=== PATIENT | female | born 1970 | race Caucasian/White ===

== ENCOUNTER 2016-11-22 12:26 | Inpatient (IN) | payer MEDICAID, OTHER ==
--- NOTE | 2016-11-22 13:43 | ED ---
Psych HPI - General Chief Complaint: Psychiatric Symptoms Stated Complaint: Mental Health Time Seen by Provider: 11/22/16 13:14 Source: patient Mode of arrival: wheelchair - History of Present Illness Initial Comments: This 46-year-old white female presents complaining of depression. She states that she feels suicidal. She complains of anxiety as well. She denies any hallucinations or delusions. She does have a long-standing history of anxiety. She is taking medication for this in the past with limited relief. She states that it is been worse over the past year and half since her brother . She does utilize cocaine but not since this past week. She denies any other drugs or alcohol. - Related Data Home Medications Medication Instructions Recorded Confirmed Cetirizine HCl [Zyrtec] 10 mg PO DAILY 11/22/16 11/22/16 Fluticasone Nasal [place] [Flonase 1 spray EA NOSTRIL DAILY PRN 11/22/16 11/22/16 Nasal [place]] Hydrocodone/Acetaminophen [[place] 1 tab PO Q6H PRN 11/22/16 11/22/16 10-325 Tablet] Ibuprofen [Motrin] 800 mg PO Q8HR PRN 11/22/16 11/22/16 Multivitamins, Thera [Multivitamin 1 tab PO DAILY 11/22/16 11/22/16 (formulary)] Omeprazole [PriLOSEC] 20 mg PO DAILY 11/22/16 11/22/16 Venlafaxine HCl [Effexor XR] 37.5 mg PO DAILY 11/22/16 11/22/16 Allergies Allergy/AdvReac Type Severity Reaction Status Date / Time morphine Allergy Unknown Verified 11/22/16 13:43 Sulfa (Sulfonamide Allergy Unknown Verified 11/22/16 13:43 Antibiotics) Review of Systems ROS Statement: Those systems with pertinent positive or pertinent negative responses have been documented in the HPI. ROS Other: All systems not noted in ROS Statement are negative. Past Medical History Additional Past Medical History / Comment(s): back issues History of Any Multi-Drug Resistant Organisms: None Reported Past Surgical History: Cholecystectomy, Hysterectomy Additional Past Surgical History / Comment(s): nasal surgery Past Psychological History: Depression Smoking Status: Current every day smoker Past Alcohol Use History: None Reported Past Drug Use History: None Reported General Exam - General Exam Comments Initial Comments: GENERAL: The patient is well nourished and well hydrated. VITAL SIGNS: Heart rate, blood pressure, respiratory rate reviewed as recorded in nurse's notes. EYES: Pupils are round and reactive. Extraocular movements are intact. No conjunctival / lid redness or swelling. ENT: No external evidence of injury, swelling, or ecchymosis. Airway is patent. Throat is clear. NECK: Nontender. No swelling or evidence of injury. No subcutaneous emphysema. Trachea is midline. No thyroid mass. HEART: Regular rate and rhythm. Good peripheral pulses. LUNGS/CHEST: Breath sounds clear and equal bilaterally. No rales, rhonchi, or wheezes. No ecchymosis, subcutaneous emphysema, or tenderness. ABDOMEN: Abdomen soft without tenderness. No palpable masses or organomegaly. No peritoneal signs. No abdominal wall swelling or ecchymosis. EXTREMITIES: No extremity tenderness. Normal muscle tone and function. No thoracolumbar tenderness. NEUROLOGIC: Sensation is grossly intact. Cranial nerve exam reveals face is symmetrical, tongue is midline, speech is clear. SKIN: No abrasions or ecchymosis is noted. No induration or masses noted. PSYCHIATRIC: Alert and oriented. Flat affect and tearful at times. Limitations: no limitations Course Vital Signs 11/22/16 12:35 Temperature 98.2 F Pulse Rate 85 Respiratory 18 Rate Blood Pressure 135/90 O2 Sat by Pulse 96 Oximetry Medical Decision Making - Medical Decision Making The patient is seen and examined. It is felt as though she is cleared for further psychiatric evaluation. Case is discussed with the psychiatric nurse and they would like to admit her to the hospital for further treatment. - Lab Data Lab Results 11/22/16 Range/Units 13:36 Urine Opiates Screen Detected H (NotDetected) Ur Oxycodone Screen Not Detected (NotDetected) Urine Methadone Screen Not Detected (NotDetected) Ur Propoxyphene Screen Not Detected (NotDetected) Ur Barbiturates Screen Not Detected (NotDetected) U Tricyclic Antidepress Not Detected (NotDetected) Ur Phencyclidine Scrn Not Detected (NotDetected) Ur Amphetamines Screen Not Detected (NotDetected) U Methamphetamines Scrn Not Detected (NotDetected) U Benzodiazepines Scrn Detected H (NotDetected) Urine Cocaine Screen Detected H (NotDetected) U Marijuana (THC) Screen Not Detected (NotDetected) Disposition Clinical Impression: Depression, Anxiety, Suicidal ideation Disposition: ADMITTED IP TO THIS [facility] Condition: Fair Time of Disposition: 18:05 Decision Date: 11/22/16 Decision Time: 18:05
[2016-11-22] MEDS ORDERED: ALPRAZolam 0.5 MG TAB PO STA (16:18)
[2016-11-22] MEDS ORDERED: KETOROLAC 60 MG/2 ML VIAL IM STA (16:19)
[2016-11-22] MEDS ORDERED: ZIPRASIDONE 20 MG VIAL IM PRN (18:40)
[2016-11-22] MEDS ORDERED: LORazepam 1 MG TAB PO PRN (18:40)
[2016-11-22] MEDS ORDERED: MAGNESIUM HYDROXIDE 2,400 MG/10 ML CUP PO PRN (18:40)
[2016-11-22] MEDS ORDERED: MAG HYDROX/AL HYDROX/SIMETH 30 ML CUP PO PRN (18:40)
[2016-11-22] MEDS ORDERED: ACETAMINOPHEN TAB 325 MG TAB PO PRN (18:40)
[2016-11-22] MEDS ORDERED: FLUTICASONE 50MCG/SPRAY NASAL 16GM EA NOSTRIL PRN (19:03)
[2016-11-22 19:52] VITALS: BMI 36.0
[2016-11-23 01:36] LABS: Appearance,Urine Cloudy (Clear); Bilirubin,Urine Negative (Negative); Calcium Oxalate Crystals,Urine Few /hpf; Glucose,Urine (UA) Negative (Negative); Ketones,Urine Negative (Negative); Leukocyte Esterase,Urine Negative (Negative); Mucus,Urine Occasional /hpf; Nitrite,Urine Negative (Negative); PH, Urine 5.5 (5.0-8.0); Particle Count 5564; Protein,Urine Trace (Negative); Specific Gravity,Urine 1.024 (1.001-1.035); Squamous Epithelial Cell,Urine 1 /hpf (0-4); UA Billing (MACRO vs. MICRO) MICRO; WBC,Urine <1 /hpf (0-5)
[2016-11-23] MEDS: LORATADINE 10 MG TAB PO SCH (08:41)
[2016-11-23] MEDS: PANTOPRAZOLE 40 MG TABLET PO SCH (08:41)
[2016-11-23] MEDS: HYDROcodone/APAP 5-325MG 1 EACH TAB PO PRN ×2 (08:43→16:44)
[2016-11-23] MEDS: IBUPROFEN 800 MG TAB PO PRN (08:44)
[2016-11-23 10:02] LABS: Basophils # (A) 0.1 k/uL (0-0.2); Basophils % (A) 1 %; CH 28.1; CHCM 32.9; Eosinophils # (A) 0.4 k/uL (0-0.7); Eosinophils % (A) 6 %; HDW 2.57; HGB 14.4 gm/dL (11.4-16.0); Luc # (Auto) 0.11; Luc % (Auto) 2; Lymphocytes # (A) 2.2 k/uL (1.0-4.8); Lymphocytes % (A) 34 %; MCH 27.5 pg (25.0-35.0); MCV 86.1 fL (80.0-100.0); Monocytes # (A) 0.3 k/uL (0-1.0); Monocytes % (A) 4 %; Neutrophils # (A) 3.5 k/uL (1.3-7.7); Neutrophils % (A) 54 %; RBC 5.22 m/uL (3.80-5.40); RDW 13.7 % (11.5-15.5); WBC 6.6 k/uL (3.8-10.6)
[2016-11-23 10:21] LABS: ALT 31 U/L (9-52); AST 22 U/L (14-36); Alkaline Phosphatase 75 U/L (38-126); Anion Gap 10 mmol/L; Blood Urea Nitrogen 20 mg/dL (7-17); Calcium 9.7 mg/dL (8.4-10.2); Carbon Dioxide 29 mmol/L (22-30); Chloride 104 mmol/L (98-107); Glucose 138 mg/dL (74-99); Non-African American GFR(MDRD) >60 (>60 ml/min/1.73 sqM); Potassium 3.5 mmol/L (3.5-5.1); Sodium 143 mmol/L (137-145); Total Bilirubin 0.7 mg/dL (0.2-1.3); Total Protein 6.8 g/dL (6.3-8.2)
[2016-11-23] MEDS: MULTIVITAMINS, THERA 1 EACH TAB PO SCH (13:08)
--- NOTE | 2016-11-23 15:14 | P.HP ---
Psychiatric H&P - . H&P Date: 11/23/16 History & Physical: Allergies Allergy/AdvReac Type Severity Reaction Status Date / Time morphine Allergy Unknown Verified 11/22/16 19:45 Sulfa (Sulfonamide Allergy Unknown Verified 11/22/16 19:45 Antibiotics) Vital Signs Temp 98.4 F 11/23/16 06:36 Pulse 62 11/23/16 06:36 Resp 16 11/23/16 06:36 BP 103/55 11/23/16 06:36 Pulse Ox 99 11/22/16 20:21 Intake & Output 11/22/16 11/23/16 11/23/16 18:59 06:59 18:59 Weight 95.254 kg 95.27 kg Laboratory Last Values WBC 6.6 k/uL (3.8-10.6) 11/23/16 09:34 RBC 5.22 m/uL (3.80-5.40) 11/23/16 09:34 Hgb 14.4 gm/dL (11.4-16.0) 11/23/16 09:34 Hct 45.0 % (34.0-46.0) 11/23/16 09:34 MCV 86.1 fL (80.0-100.0) 11/23/16 09:34 MCH 27.5 pg (25.0-35.0) 11/23/16 09:34 MCHC 32.0 g/dL (31.0-37.0) 11/23/16 09:34 RDW 13.7 % (11.5-15.5) 11/23/16 09:34 Plt Count 265 k/uL (150-450) 11/23/16 09:34 Neutrophils % 54 % 11/23/16 09:34 Lymphocytes % 34 % 11/23/16 09:34 Monocytes % 4 % 11/23/16 09:34 Eosinophils % 6 % 11/23/16 09:34 Basophils % 1 % 11/23/16 09:34 Neutrophils # 3.5 k/uL (1.3-7.7) 11/23/16 09:34 Lymphocytes # 2.2 k/uL (1.0-4.8) 11/23/16 09:34 Monocytes # 0.3 k/uL (0-1.0) 11/23/16 09:34 Eosinophils # 0.4 k/uL (0-0.7) 11/23/16 09:34 Basophils # 0.1 k/uL (0-0.2) 11/23/16 09:34 Sodium 143 mmol/L (137-145) 11/23/16 09:34 Potassium 3.5 mmol/L (3.5-5.1) 11/23/16 09:34 Chloride 104 mmol/L (98-107) 11/23/16 09:34 Carbon Dioxide 29 mmol/L (22-30) 11/23/16 09:34 Anion Gap 10 mmol/L 11/23/16 09:34 BUN 20 mg/dL (7-17) H 11/23/16 09:34 Creatinine 0.78 mg/dL (0.52-1.04) 11/23/16 09:34 Est GFR (MDRD) Af Amer >60 (>60 ml/min/1.73 sqM) 11/23/16 09:34 Est GFR (MDRD) Non-Af >60 (>60 ml/min/1.73 sqM) 11/23/16 09:34 Glucose 138 mg/dL (74-99) H 11/23/16 09:34 Calcium 9.7 mg/dL (8.4-10.2) 11/23/16 09:34 Total Bilirubin 0.7 mg/dL (0.2-1.3) 11/23/16 09:34 AST 22 U/L (14-36) 11/23/16 09:34 ALT 31 U/L (9-52) 11/23/16 09:34 Alkaline Phosphatase 75 U/L (38-126) 11/23/16 09:34 Total Protein 6.8 g/dL (6.3-8.2) 11/23/16 09:34 Albumin 4.0 g/dL (3.5-5.0) 11/23/16 09:34 TSH 2.020 mIU/L (0.465-4.680) 11/23/16 09:34 Urine Color Yellow 11/22/16 13:36 Urine Appearance Cloudy (Clear) H 11/22/16 13:36 Urine pH 5.5 (5.0-8.0) 11/22/16 13:36 Ur Specific [place] 1.024 (1.001-1.035) 11/22/16 13:36 Urine Protein Trace (Negative) H 11/22/16 13:36 Urine Glucose (UA) Negative (Negative) 11/22/16 13:36 Urine Ketones Negative (Negative) 11/22/16 13:36 Urine Blood Negative (Negative) 11/22/16 13:36 Urine Nitrite Negative (Negative) 11/22/16 13:36 Urine Bilirubin Negative (Negative) 11/22/16 13:36 Urine Urobilinogen 2.0 mg/dL (<2.0) 11/22/16 13:36 Ur Leukocyte Esterase Negative (Negative) 11/22/16 13:36 Urine WBC <1 /hpf (0-5) 11/22/16 13:36 Ur Squamous Epith Cells 1 /hpf (0-4) 11/22/16 13:36 Calcium Oxalate Crystal Few /hpf (None) H 11/22/16 13:36 Urine Mucus Occasional /hpf (None) H 11/22/16 13:36 Urine HCG, Qual Not Detected (Not Detectd) 11/22/16 13:36 Urine Opiates Screen Detected (NotDetected) H 11/22/16 13:36 Ur Oxycodone Screen Not Detected (NotDetected) 11/22/16 13:36 Urine Methadone Screen Not Detected (NotDetected) 11/22/16 13:36 Ur Propoxyphene Screen Not Detected (NotDetected) 11/22/16 13:36 Ur Barbiturates Screen Not Detected (NotDetected) 11/22/16 13:36 U Tricyclic Antidepress Not Detected (NotDetected) 11/22/16 13:36 Ur Phencyclidine Scrn Not Detected (NotDetected) 11/22/16 13:36 Ur Amphetamines Screen Not Detected (NotDetected) 11/22/16 13:36 U Methamphetamines Scrn Not Detected (NotDetected) 11/22/16 13:36 U Benzodiazepines Scrn Detected (NotDetected) H 11/22/16 13:36 Urine Cocaine Screen Detected (NotDetected) H 11/22/16 13:36 U Marijuana (THC) Screen Not Detected (NotDetected) 11/22/16 13:36 11/23/16 15:04 IDENTIFYING DATA: 46-year-old single female patient HPI: Patient states she was admitted because she had had enough. She states she came back to [place] and didn't want to be back here. Says she doesn't have a problem with addiction she is in [place]. She says she used a few days before she came in the hospital. She goes on to state that she came here instead of using again. She'll she has been depressed a lot and grieving the loss of her brother who she states shot himself a year and a half ago. She says it is not fair that he is not here and she needs to be here. She admits to thoughts of suicide lately, states that she has 2 nephews 18 and 20 that she is very close with and she thinks of them as a reason not to commit suicide. She admits to being a worrier and has big-time anxiety. She also admits to racing thoughts and states that she came here to get medication and to get back on track. PAST PSYCHIATRIC HISTORY: Has had 3 prior inpatient psychiatric admissions. States she's had 3 suicide attempts which were overdoses. She said her other times that she took pills without being admitted. She has never been on Abilify. She states that Seroquel made her too tired. She has been on Trintellix at some time in the past without significant benefit as well as Wellbutrin which did not help. She was on Effexor recently which made her feel sleepy. She does have a history of diagnosis of bipolar disorder with history of manic episodes. PMH: 2 herniated disks in her neck with pain. Plantar fasciitis, heel spurs and she states herniation in her feet. COPD. ALLERGIES: Morphine, sulfa MEDICATIONS: Tylenol when necessary, Maalox when necessary, Flonase, [place] when necessary, Motrin when necessary, Claritin, Ativan when necessary, milk of Magnesia when necessary, Theragran, Protonix, Geodon when necessary CHEMICAL DEPENDENCY HISTORY: Patient reports history of cocaine being her drug of choice. She did use daily at one point in time. She's been to rehab twice. She did not use when she was in [place] for 5 years. Says she uses alcohol here and there. Denies any marijuana or heroin use. FAMILY PSYCHIATRIC HISTORY: Brother who she relays shot himself 1-1/2 years ago. FAMILY CHEMICAL DEPENDENCY HISTORY: Not known at this time SOCIAL HISTORY: Not currently working, says she can't hold a job due to her mind. She did graduate high school. She has done medical billing in the past. Currently lives with her mom. She's never been and does not have any children. She has 2 nephews who live here in [place] and she moved back because of them. MENTAL STATUS EXAM: She is alert and cooperative with the interview. Her speech is fluent, not rapid or pressured. Thought processes organized. She denies any hallucinations. She describes her mood as "I'm.." She denies any thoughts of harm to self or others. No evidence of psychosis or agitation. Cognitively she appears very grossly intact. I do not note any significant disorientation or memory disturbance. Her insight is adequate, judgment shows evidence of recent impairment. STRENGTHS/WEAKNESSES: Strengths-some supports; weaknesses-coping skills INTELLECTUAL FUNCTIONING: adequate IMPRESSIONS: bipolar disorder, depressed; generalized anxiety disorder; stimulant use disorder PLAN: patient is admitted to the inpatient psychiatric unit [facility] on a voluntary basis. She'll be placed on SP 15 minute precautions. Baseline laboratory workup will be done the patient and medical consultation will be ordered. We will initiate Cymbalta 30 monitor daily to help with depression and anxiety symptoms. We will also initiate Abilify 5 mg daily to help with mood stabilization. We'll continue to cover this patient for Dr. Bertrand through the weekend. We will look into any family supports. Estimated length of stay is 3-5 days. Prognosis is guarded.
[2016-11-23] MEDS: DULoxetine HCL 30 MG CAPSULE.DR PO SCH (16:32)
[2016-11-23] MEDS: ARIPiprazole 5 MG TAB PO SCH (16:32)
--- NOTE | 2016-11-23 16:40 | P.CONS ---
History of Present Illness - Reason for Consult Physical examination - Chief Complaint Depression and anxiety - History of Present Illness This is a pleasant 46-year-old lady with no current PCP, admitted to the mental health unit secondary to depression and racing thoughts and suicidal ideation, she was admitted to [facility] rather than [facility] secondary to her avoiding multiple drug exposures among her friends, and she wanted to start a fair shot on life and wants to start over, she started using cocaine several years ago and was clean for 5 years and is started using again past 3 months, she is also on chronic pain [place] and was discharged from her previous PCP secondary to illicit drug use. She has multiple treatments for anxiety depression including brintellix Zoloft and Prozac, she also was on Seroquel, and blood within which did not help, Seroquel made her too drowsy, she also carries a diagnosis of bipolar disorder with history of manic episodes, Review of Systems Constitutional: Reports as per HPI, Reports chronic pain Ears, nose, mouth and throat: Reports as per HPI, Denies ant. neck pain, Denies bleeding gums, Denies dental pain, Denies dysphagia, Denies epistaxis, Denies headache, Denies hoarseness, Denies mouth pain, Denies nasal congestion, Denies nasal discharge, Denies neck fullness/pressure, Denies neck lump, Denies nose pain, Denies odynophagia, Denies post-nasal drip, Denies sinus pain, Denies sinus pressure, Denies swelling in mouth, Denies swelling in throat, Denies sore throat, Denies vertigo, Denies voice changes Cardiovascular: Reports as per HPI, Denies chest pain, Denies claudication, Denies decreased exercise tolerance, Denies dyspnea on exertion, Denies edema, Denies high blood pressure, Denies irregular heart beat, Denies leg edema, Denies lightheadedness, Denies orthopnea, Denies palpitations, Denies paroxysmal nocturnal dyspnea, Denies phlebitis, Denies rapid heart beat, Denies shortness of breath, Denies syncope Respiratory: Reports as per HPI, Denies congestion, Denies cough, Denies cough with sputum, Denies dyspnea, Denies excessive sputum, Denies hemoptysis, Denies home oxygen, Denies pain, Denies pain on inspiration, Denies pleurisy, Denies respiratory infections, Denies sleep apnea, Denies snoring, Denies wheezing Gastrointestinal: Reports as per HPI, Denies abdominal pain, Denies belching, Denies bloating, Denies BRBPR, Denies change in bowel habits, Denies coffee ground emesis, Denies constipation, Denies diarrhea, Denies dyspepsia, Denies early satiety, Denies excessive gas, Denies heartburn, Denies hematemesis, Denies hematochezia, Denies indigestion, Denies jaundice, Denies lactose intolerance, Denies loss of appetite, Denies melena, Denies nausea, Denies vomiting Genitourinary: Reports as per HPI Menstruation: Reports as per HPI Musculoskeletal: Reports as per HPI, Reports gait dysfunction, Reports limitation of motion, Denies arm numbness/tingling, Denies atrophy, Denies fractures, Denies frequent falls, Denies hot joints, Denies leg numbness/ tingling, Denies loss of height, Denies low back pain, Denies morning stiffness , Denies muscle cramps, Denies muscle weakness, Denies myalgias, Denies neck pain, Denies neck stiffness, Denies prior amputations, Denies redness of joints , Denies shooting arm pain, Denies shooting leg pain Integumentary: Reports as per HPI Neurological: Denies as per HPI, Denies aphasia, Denies ataxia, Denies balance difficulties, Denies burning pain, Denies change in mentation, Denies change in smell/taste, Denies change in speech, Denies confusion, Denies convulsions, Denies double vision, Denies gait dysfunction, Denies head injury, Denies headaches, Denies hearing difficulties, Denies lack of coordination, Denies loss of vision, Denies memory loss, Denies migraines, Denies motor disturbance, Denies numbness, Denies paralysis, Denies paresthesias, Denies seizures, Denies sensory deficit, Denies spasticity, Denies syncope, Denies tic, Denies tingling , Denies transient paralysis, Denies tremors, Denies vertigo, Denies weakness, Denies visual changes Psychiatric: Reports as per HPI, Reports anxiety, Reports irritability, Reports mood swings, Reports sleep disturbances, Reports suicidal ideation Endocrine: Reports as per HPI, Denies cold intolerance, Denies deepening of the voice, Denies excessive sweating, Denies excessive thirst, Denies fatigue, Denies flushing, Denies heat intolerance, Denies high blood sugars, Denies increase in ring/shoe/hat size, Denies low blood sugars, Denies nocturia, Denies palpitations, Denies polydipsia, Denies polyphagia, Denies polyuria, Denies proptosis, Denies recent glucocorticoid use, Denies thyroid mass, Denies weight change Hematologic/Lymphatic: Reports as per HPI, Denies easy bleeding, Denies easy bruising, Denies lymphadenopathy, Denies lymphedema, Denies thrombophilia Allergic/Immunologic: Reports as per HPI, Denies allergic rhinitis, Denies anaphylaxis, Denies angioedema, Denies gluten intolerance, Denies persistent infections, Denies seasonal allergies, Denies urticaria, Denies wheezing Past Medical History Past Medical History: COPD, Osteoarthritis (OA) (Lumbar disc disease, plantar fasciitis, herniated disc in the neck) Additional Past Medical History / Comment(s): back issues History of Any Multi-Drug Resistant Organisms: None Reported Past Surgical History: Cholecystectomy, Hysterectomy Additional Past Surgical History / Comment(s): nasal surgery Past Psychological History: Depression Smoking Status: Current every day smoker Past Alcohol Use History: None Reported Past Drug Use History: None Reported Medications and Allergies Home Medications Medication Instructions Recorded Confirmed Type Cetirizine HCl [Zyrtec] 10 mg PO DAILY 11/22/16 11/22/16 History Fluticasone Nasal [place] [Flonase 1 spray EA NOSTRIL DAILY PRN 11/22/16 11/22/16 History Nasal [place]] Hydrocodone/Acetaminophen [[place] 1 tab PO Q6H PRN 11/22/16 11/22/16 History 10-325 Tablet] Ibuprofen [Motrin] 800 mg PO Q8HR PRN 11/22/16 11/22/16 History Multivitamins, Thera [Multivitamin 1 tab PO DAILY 11/22/16 11/22/16 History (formulary)] Omeprazole [PriLOSEC] 20 mg PO DAILY 11/22/16 11/22/16 History Venlafaxine HCl [Effexor XR] 37.5 mg PO DAILY 11/22/16 11/22/16 History Allergies Allergy/AdvReac Type Severity Reaction Status Date / Time morphine Allergy Unknown Verified 06/09/17 19:45 Sulfa (Sulfonamide Allergy Unknown Verified 11/22/16 19:45 Antibiotics) Physical Exam Vitals: Vital Signs Temp Pulse Pulse Resp BP BP Pulse Ox 11/23/16 06:36 98.4 F 62 16 103/55 11/23/16 04:04 97.9 F 73 16 116/92 11/22/16 20:21 98.6 F 65 18 116/59 99 11/22/16 19:58 98.6 F 68 18 116/59 92 L Intake and Output 11/22/16 11/23/16 11/23/16 22:59 06:59 14:59 Other: Weight 95.27 kg - Constitutional General appearance: cooperative, no acute distress - EENT Eyes: anicteric sclerae, dentition normal ENT: NA/AT, normal oropharynx - Neck Neck: no lymphadenopathy, normal ROM, no other, no rigidity, no stridor, no thyromegaly - Respiratory Respiratory: bilateral: CTA, negative: dullness, rales, rhonchi, wheezing - Cardiovascular Rhythm: regular Heart sounds: normal: S1, S2 Abnormal Heart Sounds: no systolic murmur, no diastolic murmur, no rub, no S3 Gallop, no S4 Gallop, no click, no other - Gastrointestinal General gastrointestinal: normal bowel sounds, soft - Integumentary Integumentary: normal, normal turgor - Neurologic Neurologic: CNII-XII intact - Musculoskeletal Musculoskeletal: gait normal, strength equal bilaterally - Psychiatric Psychiatric: A&O x's 3, appropriate affect, intact judgment & insight Results CBC & Chem 7: 11/23/16 09:34 11/23/16 09:34 Labs: Abnormal Lab Results - Last 24 Hours (Table) 11/22/16 11/22/16 11/23/16 Range/Units 13:36 13:36 09:34 BUN 20 H (7-17) mg/dL Glucose 138 H (74-99) mg/dL Urine Appearance Cloudy H (Clear) Urine Protein Trace H (Negative) Calcium Oxalate Crystal Few H (None) /hpf Urine Mucus Occasional H (None) /hpf Urine Opiates Screen Detected H (NotDetected) U Benzodiazepines Scrn Detected H (NotDetected) Urine Cocaine Screen Detected H (NotDetected) Laboratory Results WBC 6.6 k/uL (3.8-10.6) 11/23/16 09:34 RBC 5.22 m/uL (3.80-5.40) 11/23/16 09:34 Hgb 14.4 gm/dL (11.4-16.0) 11/23/16 09:34 Hct 45.0 % (34.0-46.0) 11/23/16 09:34 MCV 86.1 fL (80.0-100.0) 11/23/16 09:34 MCH 27.5 pg (25.0-35.0) 11/23/16 09:34 MCHC 32.0 g/dL (31.0-37.0) 11/23/16 09:34 RDW 13.7 % (11.5-15.5) 11/23/16 09:34 Plt Count 265 k/uL (150-450) 11/23/16 09:34 Neutrophils % 54 % 11/23/16 09:34 Lymphocytes % 34 % 11/23/16 09:34 Monocytes % 4 % 11/23/16 09:34 Eosinophils % 6 % 11/23/16 09:34 Basophils % 1 % 11/23/16 09:34 Neutrophils # 3.5 k/uL (1.3-7.7) 11/23/16 09:34 Lymphocytes # 2.2 k/uL (1.0-4.8) 11/23/16 09:34 Monocytes # 0.3 k/uL (0-1.0) 11/23/16 09:34 Eosinophils # 0.4 k/uL (0-0.7) 11/23/16 09:34 Basophils # 0.1 k/uL (0-0.2) 11/23/16 09:34 Sodium 143 mmol/L (137-145) 11/23/16 09:34 Potassium 3.5 mmol/L (3.5-5.1) 11/23/16 09:34 Chloride 104 mmol/L (98-107) 11/23/16 09:34 Carbon Dioxide 29 mmol/L (22-30) 11/23/16 09:34 Anion Gap 10 mmol/L 11/23/16 09:34 BUN 20 mg/dL (7-17) H 11/23/16 09:34 Creatinine 0.78 mg/dL (0.52-1.04) 11/23/16 09:34 Est GFR (MDRD) Af Amer >60 (>60 ml/min/1.73 sqM) 11/23/16 09:34 Est GFR (MDRD) Non-Af >60 (>60 ml/min/1.73 sqM) 11/23/16 09:34 Glucose 138 mg/dL (74-99) H 11/23/16 09:34 Calcium 9.7 mg/dL (8.4-10.2) 11/23/16 09:34 Total Bilirubin 0.7 mg/dL (0.2-1.3) 11/23/16 09:34 AST 22 U/L (14-36) 11/23/16 09:34 ALT 31 U/L (9-52) 11/23/16 09:34 Alkaline Phosphatase 75 U/L (38-126) 11/23/16 09:34 Total Protein 6.8 g/dL (6.3-8.2) 11/23/16 09:34 Albumin 4.0 g/dL (3.5-5.0) 11/23/16 09:34 TSH 2.020 mIU/L (0.465-4.680) 11/23/16 09:34 Urine Color Yellow 11/22/16 13:36 Urine Appearance Cloudy (Clear) H 11/22/16 13:36 Urine pH 5.5 (5.0-8.0) 11/22/16 13:36 Ur Specific [place] 1.024 (1.001-1.035) 11/22/16 13:36 Urine Protein Trace (Negative) H 11/22/16 13:36 Urine Glucose (UA) Negative (Negative) 11/22/16 13:36 Urine Ketones Negative (Negative) 11/22/16 13:36 Urine Blood Negative (Negative) 11/22/16 13:36 Urine Nitrite Negative (Negative) 11/22/16 13:36 Urine Bilirubin Negative (Negative) 11/22/16 13:36 Urine Urobilinogen 2.0 mg/dL (<2.0) 11/22/16 13:36 Ur Leukocyte Esterase Negative (Negative) 11/22/16 13:36 Urine WBC <1 /hpf (0-5) 11/22/16 13:36 Ur Squamous Epith Cells 1 /hpf (0-4) 11/22/16 13:36 Calcium Oxalate Crystal Few /hpf (None) H 11/22/16 13:36 Urine Mucus Occasional /hpf (None) H 11/22/16 13:36 Urine HCG, Qual Not Detected (Not Detectd) 11/22/16 13:36 Urine Opiates Screen Detected (NotDetected) H 11/22/16 13:36 Ur Oxycodone Screen Not Detected (NotDetected) 11/22/16 13:36 Urine Methadone Screen Not Detected (NotDetected) 11/22/16 13:36 Ur Propoxyphene Screen Not Detected (NotDetected) 11/22/16 13:36 Ur Barbiturates Screen Not Detected (NotDetected) 11/22/16 13:36 U Tricyclic Antidepress Not Detected (NotDetected) 11/22/16 13:36 Ur Phencyclidine Scrn Not Detected (NotDetected) 11/22/16 13:36 Ur Amphetamines Screen Not Detected (NotDetected) 11/22/16 13:36 U Methamphetamines Scrn Not Detected (NotDetected) 11/22/16 13:36 U Benzodiazepines Scrn Detected (NotDetected) H 11/22/16 13:36 Urine Cocaine Screen Detected (NotDetected) H 11/22/16 13:36 U Marijuana (THC) Screen Not Detected (NotDetected) 11/22/16 13:36 Assessment and Plan Plan: 1. Bipolar disorder with depression, generalized anxiety disorder, patient currently is in the mental health inpatient unit on a voluntary basis, patient will be placed on suicide precautions and would be closely monitored, psychiatry would initiate Cymbalta and Abilify for mood stabilization, 2. Chronic pain patient was started on Cymbalta Katelyn this admission, she was counseled regarding the illicit cocaine use, local [id number] at every 8 hours when necessary was offered, patient has failed even Voltaren gel, and has refused neck spine surgery that was offered to her in the past 3. Cocaine use, patient was counseled regarding the severe consequences off illicit drug use EKG was performed in emergency room which failed to reveal any QT prolongation 4ALLERGIC rhinitis on Flonase 5 GERD on Protonix 40
[2016-11-24] MEDS: HYDROcodone/APAP 5-325MG 1 EACH TAB PO PRN ×3 (04:37→22:04)
[2016-11-24] MEDS: LORATADINE 10 MG TAB PO SCH (09:27)
[2016-11-24] MEDS: DULoxetine HCL 30 MG CAPSULE.DR PO SCH (09:27)
[2016-11-24] MEDS: ARIPiprazole 5 MG TAB PO SCH (09:27)
[2016-11-24] MEDS: PANTOPRAZOLE 40 MG TABLET PO SCH (09:27)
[2016-11-24] MEDS: IBUPROFEN 800 MG TAB PO PRN (09:28)
[2016-11-24] MEDS: MULTIVITAMINS, THERA 1 EACH TAB PO SCH (13:05)
--- NOTE | 2016-11-24 14:16 | P.PN ---
Progress Note - Text Interval history: Patient is seen in cross coverage today for Dr. Bertrand. She reports that she has been sleeping a lot, relays she was sleeping a lot prior to coming in the hospital it sounds. It is not clear whether either of the medications Cymbalta or Abilify is making her tired. She does state towards the end of the session she's feels like she is feeling a little bit better today. Mental status exam: She is alert and cooperative with the interview. Her speech is fluent, not rapid or pressured. Thought processes are organized. Her mood is described as a little bit better. She admits to some on and off thoughts of suicide, relays that she is able to be safe in the hospital. She denies any thoughts of harm to others. She does not show any active evidence of psychosis. She does not show any agitation. Plan: Patient will be maintained on current psychotropic medication regimen. We will monitor for any medication side effects. Dr. Bertrand to resume care this patient starting tomorrow.
[2016-11-25] MEDS: ARIPiprazole 5 MG TAB PO SCH (09:24)
[2016-11-25] MEDS: PANTOPRAZOLE 40 MG TABLET PO SCH (09:25)
[2016-11-25] MEDS: HYDROcodone/APAP 5-325MG 1 EACH TAB PO PRN ×2 (09:26→18:49)
[2016-11-25] MEDS: LORATADINE 10 MG TAB PO SCH (09:26)
[2016-11-25] MEDS: DULoxetine HCL 30 MG CAPSULE.DR PO SCH (09:26)
[2016-11-25] MEDS: MULTIVITAMINS, THERA 1 EACH TAB PO SCH (12:48)
--- NOTE | 2016-11-25 12:52 | P.PN ---
Progress Note - Text Interval history: Patient discussed at treatment team meeting, review of record , met with patient. Patient admitted over the weekend for suicidal ideation. Reports that she is feeling sleepy, knows that this is a side effect of medicine and that it should wear off soon. Patient reports that she is not interested in going to rehab, says that she was clean for 5 years when she was in [place], and for the last 2 months in [place]. States the only reason that she used here was because she was suicidal and then decided to come in and get treatment. States that she is angry with her brother for committing suicide. Says that she was the one that was always identified as the one with mental illness, everything was hard for her, it was easy for him then he went ahead and killed himself he was drinking. Patient says that she doesn't want to go to rehab because she'll just be around people who use. Says she thinks she like to stay here in [place] but she has no place to stay so she knows that she'll be going back to stay with her mother at least for a short time. She would like to have her mental health care up in this area rather than in [place]. Denies suicidal ideation Mental status exam: Patient alert and oriented 3, good eye contact, fair groomed in street clothing. Speech normal volume, rate and production. Coherent, logical and goal directed thought process. No RAMON, no FOI. [No TB/TW/ TI] Denied auditory and visual hallucinations. Denied paranoid ideation, delusions or IOR. Memory grossly intact Cognition average Mood neutral, affect instructed, congruent with mood. Denies suicidal ideation, denies homicidal ideation. Insight partial; Judgement [place] intact for treatment purposes ASSESSMENT: Methamphetamine use Cocaine use Opiate use Benzodiazepine abuse Suicidal ideation Mood disorder unspecified Plan: Continue psychiatric inpatient admission, for safety, clarification of diagnosis and treatment. Continue Abilify for mood and Cymbalta. Patient asking for Xanax explain benzodiazepine class is not a good choice for someone who has drug abuse will not prescribe. Social work to arrange family meeting, and outpatient treatment. Encourage milieu therapy.
[2016-11-25] MEDS ORDERED: hydrOXYzine PAMOATE 25 MG CAP PO PRN (12:53)
[2016-11-25] MEDS: IBUPROFEN 800 MG TAB PO PRN (22:42)
[2016-11-26 07:08] VITALS: BP 88/52; PULSE 60; RESP 12; TEMP 98
[2016-11-26] MEDS: PANTOPRAZOLE 40 MG TABLET PO SCH (07:31)
[2016-11-26] MEDS: HYDROcodone/APAP 5-325MG 1 EACH TAB PO PRN (07:32)
[2016-11-26] MEDS: ARIPiprazole 5 MG TAB PO SCH (08:38)
[2016-11-26] MEDS: LORATADINE 10 MG TAB PO SCH (08:38)
[2016-11-26] MEDS: DULoxetine HCL 30 MG CAPSULE.DR PO SCH (08:38)
[2016-11-26] MEDS: MULTIVITAMINS, THERA 1 EACH TAB PO SCH (12:06)
--- NOTE | 2016-11-26 12:17 | P.DS ---
Providers Date of admission: 11/22/16 18:15 Expected date of discharge: 11/26/16 Attending physician: Malathi Bertrand MD Consults: 11/22/16 18:40 Consult Physician Routine Consulting Provider: Hamida Arthur Consult Reason/Comments: H and P and medical management Do you want consulting provider notified?: Yes Primary care physician: Stated None Hospital Course: HOSPITAL ADMISSION: 46-year-old single female patient. Patient states she was admitted because she had had enough. She states she came back to [place] and didn't want to be back here. Says she doesn't have a problem with addiction she is in [place]. She says she used a few days before she came in the hospital. She goes on to state that she came here instead of using again. She'll she has been depressed a lot and grieving the loss of her brother who she states shot himself a year and a half ago. She says it is not fair that he is not here and she needs to be here. She admits to thoughts of suicide lately, states that she has 2 nephews 18 and 20 that she is very close with and she thinks of them as a reason not to commit suicide. She admits to being a worrier and has big-time anxiety. She also admits to racing thoughts and states that she came here to get medication and to get back on track. HOSPITAL COURSE: Patient was prescribed Abilify 5 mg UD, Cymbalta 30 mg every morning. Patient reported by the second day that she was no longer suicidal still depressed and anxious. Patient refused to attend groups stating "they always talk about suicide, and it reminds me of my brother" In the final day patient began to attend groups reporting that she was feeling good, today stating "I feel like I'm me again". Says that she is ready to get back home. Patient requests that I write a letter that she is disabled and cannot work. Explored that with her, that she had been working in [place] and that I could not make a statement as definitive is that after only treating her for 2 days. She accepted that ADMISSION DIAGNOSES: Bipolar disorder DISCHARGE DIAGNOSES: Mood disorder, unspecified PLAN: Discharge today. Discharge medications Abilify 5 mg daily Cymbalta 30 mg daily. Patient had family meeting. Outpatient follow-up appointments scheduled. Pertinent Studies: none Procedures: none Plan - Discharge Summary New Discharge Prescriptions: New ARIPiprazole [Abilify] 5 mg PO DAILY #14 tab DULoxetine HCL [Cymbalta] 30 mg PO DAILY #14 cap Continue Multivitamins, Thera [Multivitamin (formulary)] 1 tab PO DAILY Hydrocodone/Acetaminophen [[place] 10-325 Tablet] 1 tab PO Q6H PRN PRN Reason: Pain Cetirizine HCl [Zyrtec] 10 mg PO DAILY Omeprazole [PriLOSEC] 20 mg PO DAILY Ibuprofen [Motrin] 800 mg PO Q8HR PRN PRN Reason: Pain Fluticasone Nasal [place] [Flonase Nasal [place]] 1 spray EA NOSTRIL DAILY PRN PRN Reason: Allergy Symptoms Discontinued Venlafaxine HCl [Effexor XR] 37.5 mg PO DAILY Discharge Medication List Cetirizine HCl [Zyrtec] 10 mg PO DAILY 11/22/16 [History] Fluticasone Nasal [place] [Flonase Nasal [place]] 1 spray EA NOSTRIL DAILY PRN 11/22 [History] Hydrocodone/Acetaminophen [[place] 10-325 Tablet] 1 tab PO Q6H PRN 11/22/16 [ History] Ibuprofen [Motrin] 800 mg PO Q8HR PRN 11/22/16 [History] Multivitamins, Thera [Multivitamin (formulary)] 1 tab PO DAILY 11/22/16 [History ] Omeprazole [PriLOSEC] 20 mg PO DAILY 11/22/16 [History] ARIPiprazole [Abilify] 5 mg PO DAILY #14 tab 11/26/16 [Rx] DULoxetine HCL [Cymbalta] 30 mg PO DAILY #14 cap 11/26/16 [Rx] Discharge Disposition: HOME SELF-CARE
== END 2016-11-26 16:10 | disposition home or self-care (01) | DRG 885 ==
LOC: EC 12:26 → 3MHU 18:15
PROVIDERS: ADMIT Psychiatry & Neurology Addiction Medicine; ATTEND Psychiatry & Neurology Addiction Medicine
DX: F31.9 Bipolar disorder, unspecified (principal); R45.851 Suicidal ideations; J44.9 Chronic obstructive pulmonary disease, unspecified; F41.1 Generalized anxiety disorder; Z79.899 Other long term (current) drug therapy; F17.200 Nicotine dependence, unspecified, uncomplicated; F15.90 Other stimulant use, unspecified, uncomplicated; F14.90 Cocaine use, unspecified, uncomplicated; F13.10 Sedative, hypnotic or anxiolytic abuse, uncomplicated; K21.9 Gastro-esophageal reflux disease without esophagitis; J30.9 Allergic rhinitis, unspecified; Z71.51 Drug abuse counseling and surveillance of drug abuser; M51.36 Other intervertebral disc degeneration, lumbar region; M19.90 Unspecified osteoarthritis, unspecified site; Z88.5 Allergy status to narcotic agent; Z88.2 Allergy status to sulfonamides; Z63.4 Disappearance and death of family member; G89.29 Other chronic pain
CPT/HCPCS: 80053; 80306; 81001; 81025; 82075; 84443; 85025; 93005; 96372; 99285

== ENCOUNTER 2017-03-12 02:14 | Inpatient (IN) | payer OTHER ==
[2017-03-12] MEDS ORDERED: SODIUM CHLORIDE 0.9% 1,000 ML IV ONE ×2 (02:28→05:29)
--- NOTE | 2017-03-12 02:32 | ED ---
General Adult HPI - General Chief complaint: Overdose Stated complaint: Overdose Time Seen by Provider: 03/12/17 02:15 Source: EMS, RN notes reviewed Mode of arrival: EMS Limitations: no limitations - History of Present Illness Initial comments: This is a 46-year-old female who presents to the emergency department complaining of overdosing on Seroquel. Patient states she took approximately 20 pills. Patient states she took him about an hour and a half prior to arrival patient states she was suicidal at the time but after she took them she got scared and called the ambulance. Patient states she feels very tired right now but other than that she is having no complaints patient denies headache patient denies numbness weakness. Patient denies lightheadedness or dizziness. Patient denies chest pain palpitations difficulty breathing or shortness of breath. Patient denies abdominal pain patient denies nausea vomiting diarrhea - Related Data Home Medications Medication Instructions Recorded Confirmed Cetirizine HCl [Zyrtec] 10 mg PO DAILY 11/22/16 11/22/16 Fluticasone Nasal [place] [Flonase 1 spray EA NOSTRIL DAILY PRN 11/22/16 11/22/16 Nasal [place]] Hydrocodone/Acetaminophen [[place] 1 tab PO Q6H PRN 11/22/16 11/22/16 10-325 Tablet] Ibuprofen [Motrin] 800 mg PO Q8HR PRN 11/22/16 11/22/16 Multivitamins, Thera [Multivitamin 1 tab PO DAILY 11/22/16 11/22/16 (formulary)] Omeprazole [PriLOSEC] 20 mg PO DAILY 11/22/16 11/22/16 Previous Rx's Medication Instructions Recorded ARIPiprazole [Abilify] 5 mg PO DAILY #14 tab 11/26/16 DULoxetine HCL [Cymbalta] 30 mg PO DAILY #14 cap 11/26/16 Allergies Allergy/AdvReac Type Severity Reaction Status Date / Time morphine Allergy Unknown Verified 03/12/17 02:22 Sulfa (Sulfonamide Allergy Unknown Verified 03/12/17 02:22 Antibiotics) Review of Systems ROS Statement: Those systems with pertinent positive or pertinent negative responses have been documented in the HPI. ROS Other: All systems not noted in ROS Statement are negative. Past Medical History Past Medical History: COPD, Osteoarthritis (OA) Additional Past Medical History / Comment(s): back issues History of Any Multi-Drug Resistant Organisms: None Reported Past Surgical History: Cholecystectomy, Hysterectomy Additional Past Surgical History / Comment(s): nasal surgery Past Psychological History: Depression Smoking Status: Current every day smoker Past Alcohol Use History: None Reported Past Drug Use History: None Reported General Exam - General Exam Comments Initial Comments: GENERAL: Patient is well-developed and well-nourished. Patient is nontoxic and well- hydrated and is in no acute distress. Patient is very tired but easily arousable ENT: Neck is soft and supple. No significant lymphadenopathy is noted. Oropharynx is clear. Moist mucous membranes. Neck has full range of motion without eliciting any pain. EYES: The sclera were anicteric and conjunctiva were pink and moist. Extraocular movements were intact and pupils were equal round and reactive to light. Eyelids were unremarkable. PULMONARY: Unlabored respirations. Good breath sounds bilaterally. No audible rales rhonchi or wheezing was noted. CARDIOVASCULAR: There is a regular rate and rhythm without any murmurs gallops or rubs. ABDOMEN: Soft and nontender with normal bowel sounds. No palpable organomegaly was noted. There is no palpable pulsatile mass. SKIN: Skin is clear with no lesions or rashes and otherwise unremarkable. NEUROLOGIC: Patient is alert and oriented x3. Cranial nerves II through XII are grossly intact. Motor and sensory are also intact. Normal speech, volume and content. Symmetrical smile. MUSCULOSKELETAL: Normal extremities with adequate strength and full range of motion. No lower extremity swelling or edema. No calf tenderness. LYMPHATICS: No significant lymphadenopathy is noted PSYCHIATRIC: Patient states she's very depressed and suicidal Limitations: no limitations Course Vital Signs 03/12/17 03/12/17 03/12/17 02:15 02:54 03:55 Temperature 97.5 F L Pulse Rate 53 L 90 90 Respiratory 14 16 18 Rate Blood Pressure 77/43 110/59 110/59 O2 Sat by Pulse 100 100 100 Oximetry 03/12/17 03/12/17 04:58 05:15 Temperature Pulse Rate 84 90 Respiratory 16 16 Rate Blood Pressure 112/67 98/51 O2 Sat by Pulse 100 99 Oximetry Medical Decision Making - Medical Decision Making EKG shows normal sinus rhythm at 92 bpm [place] interval is 158 QRS is 78 QT interval 396 QTC is 489. Patient has no ST segment depression or elevation. Patient does have a corrected prolonged QT. Patient got some potassium as well as magnesium. - Lab Data Result diagrams: 03/12/17 02:30 03/12/17 02:30 Lab Results 03/12/17 03/12/17 03/12/17 Range/Units 02:30 02:30 02:30 WBC 6.4 (3.8-10.6) k/uL RBC 4.90 (3.80-5.40) m/uL Hgb 13.7 (11.4-16.0) gm/dL Hct 42.6 (34.0-46.0) % MCV 86.9 (80.0-100.0) fL MCH 28.0 (25.0-35.0) pg MCHC 32.2 (31.0-37.0) g/dL RDW 15.4 (11.5-15.5) % Plt Count 273 (150-450) k/uL Neutrophils % 47 % Lymphocytes % 43 % Monocytes % 5 % Eosinophils % 2 % Basophils % 1 % Neutrophils # 3.0 (1.3-7.7) k/uL Lymphocytes # 2.7 (1.0-4.8) k/uL Monocytes # 0.3 (0-1.0) k/uL Eosinophils # 0.2 (0-0.7) k/uL Basophils # 0.1 (0-0.2) k/uL Sodium 140 (137-145) mmol/L Potassium 3.6 (3.5-5.1) mmol/L Chloride 106 (98-107) mmol/L Carbon Dioxide 20 L (22-30) mmol/L Anion Gap 14 mmol/L BUN 7 (7-17) mg/dL Creatinine 0.70 (0.52-1.04) mg/dL Est GFR (MDRD) Af Amer >60 (>60 ml/min/1.73 sqM) Est GFR (MDRD) Non-Af >60 (>60 ml/min/1.73 sqM) Glucose 98 (74-99) mg/dL Calcium 9.0 (8.4-10.2) mg/dL Magnesium 1.9 (1.6-2.3) mg/dL Total Bilirubin 0.7 (0.2-1.3) mg/dL AST 27 (14-36) U/L ALT 39 (9-52) U/L Alkaline Phosphatase 72 (38-126) U/L Total Protein 6.1 L (6.3-8.2) g/dL Albumin 3.7 (3.5-5.0) g/dL Urine HCG, Qual (Not Detectd) Salicylates <1.0 mg/dL Urine Opiates Screen (NotDetected) Ur Oxycodone Screen (NotDetected) Urine Methadone Screen (NotDetected) Ur Propoxyphene Screen (NotDetected) Acetaminophen <10.0 ug/mL Ur Barbiturates Screen (NotDetected) U Tricyclic Antidepress (NotDetected) Ur Phencyclidine Scrn (NotDetected) Ur Amphetamines Screen (NotDetected) U Methamphetamines Scrn (NotDetected) U Benzodiazepines Scrn (NotDetected) Urine Cocaine Screen (NotDetected) U Marijuana (THC) Screen (NotDetected) Serum Alcohol 121 mg/dL 03/12/17 03/12/17 Range/Units 04:35 04:35 WBC (3.8-10.6) k/uL RBC (3.80-5.40) m/uL Hgb (11.4-16.0) gm/dL Hct (34.0-46.0) % MCV (80.0-100.0) fL MCH (25.0-35.0) pg MCHC (31.0-37.0) g/dL RDW (11.5-15.5) % Plt Count (150-450) k/uL Neutrophils % % Lymphocytes % % Monocytes % % Eosinophils % % Basophils % % Neutrophils # (1.3-7.7) k/uL Lymphocytes # (1.0-4.8) k/uL Monocytes # (0-1.0) k/uL Eosinophils # (0-0.7) k/uL Basophils # (0-0.2) k/uL Sodium (137-145) mmol/L Potassium (3.5-5.1) mmol/L Chloride (98-107) mmol/L Carbon Dioxide (22-30) mmol/L Anion Gap mmol/L BUN (7-17) mg/dL Creatinine (0.52-1.04) mg/dL Est GFR (MDRD) Af Amer (>60 ml/min/1.73 sqM) Est GFR (MDRD) Non-Af (>60 ml/min/1.73 sqM) Glucose (74-99) mg/dL Calcium (8.4-10.2) mg/dL Magnesium (1.6-2.3) mg/dL Total Bilirubin (0.2-1.3) mg/dL AST (14-36) U/L ALT (9-52) U/L Alkaline Phosphatase (38-126) U/L Total Protein (6.3-8.2) g/dL Albumin (3.5-5.0) g/dL Urine HCG, Qual Not Detected (Not Detectd) Salicylates mg/dL Urine Opiates Screen Not Detected (NotDetected) Ur Oxycodone Screen Not Detected (NotDetected) Urine Methadone Screen Not Detected (NotDetected) Ur Propoxyphene Screen Not Detected (NotDetected) Acetaminophen ug/mL Ur Barbiturates Screen Not Detected (NotDetected) U Tricyclic Antidepress Detected H (NotDetected) Ur Phencyclidine Scrn Not Detected (NotDetected) Ur Amphetamines Screen Not Detected (NotDetected) U Methamphetamines Scrn Not Detected (NotDetected) U Benzodiazepines Scrn Not Detected (NotDetected) Urine Cocaine Screen Detected H (NotDetected) U Marijuana (THC) Screen Not Detected (NotDetected) Serum Alcohol mg/dL Disposition Clinical Impression: Drug overdose, Suicide attempt, Cocaine abuse, Alcohol intoxication Disposition: ADMITTED IP TO THIS [facility] Referrals: None,Stated [Primary Care Provider] - 1-2 days Time of Disposition: 05:28
[2017-03-12 02:47] LABS: Basophils # (A) 0.1 k/uL (0-0.2); Basophils % (A) 1 %; CH 28.8; CHCM 33.4; Eosinophils # (A) 0.2 k/uL (0-0.7); Eosinophils % (A) 2 %; HCT 42.6 % (34.0-46.0); HDW 2.65; HGB 13.7 gm/dL (11.4-16.0); Luc # (Auto) 0.13; Luc % (Auto) 2; Lymphocytes # (A) 2.7 k/uL (1.0-4.8); Lymphocytes % (A) 43 %; MCHC 32.2 g/dL (31.0-37.0); MCV 86.9 fL (80.0-100.0); Mean Platelet Volume 7.1; Monocytes # (A) 0.3 k/uL (0-1.0); Monocytes % (A) 5 %; Neutrophils % (A) 47 %; RDW 15.4 % (11.5-15.5); WBC 6.4 k/uL (3.8-10.6); WBC (Perox) 6.68
[2017-03-12 03:02] LABS: ALT 39 U/L (9-52); AST 27 U/L (14-36); Acetaminophen <10.0 ug/mL; Alkaline Phosphatase 72 U/L (38-126); Anion Gap 14 mmol/L; Blood Urea Nitrogen 7 mg/dL (7-17); Carbon Dioxide 20 mmol/L (22-30); Chloride 106 mmol/L (98-107); Glucose 98 mg/dL (74-99); Non-African American GFR(MDRD) >60 (>60 ml/min/1.73 sqM); Potassium 3.6 mmol/L (3.5-5.1); Salicylate <1.0 mg/dL; Sodium 140 mmol/L (137-145); Total Bilirubin 0.7 mg/dL (0.2-1.3); Total Protein 6.1 g/dL (6.3-8.2)
[2017-03-12 03:03] LABS: Alcohol 121 mg/dL
[2017-03-12] MEDS ORDERED: POTASSIUM CHLORIDE 20 MEQ, LIDOCAINE 2% INJ 20 MG in SODIUM CHLORIDE 0.9% 100 ML IVPB ONE (03:48)
[2017-03-12] MEDS ORDERED: MAGNESIUM SULFATE-D5W PMX 1 GM in DEXTROSE/WATER 1 100ML.BAG IVPB ONE (04:14)
[2017-03-12] MEDS: POTASSIUM CHLORIDE 10 MEQ, LIDOCAINE 2% INJ 10 MG in SODIUM CHLORIDE 0.9% 100 ML IVPB SCH ×2 (04:25→06:48)
[2017-03-12] MEDS ORDERED: ONDANSETRON 4 MG/2 ML VIAL IVP PRN (06:31)
[2017-03-12] MEDS ORDERED: NALOXONE 0.4 MG/ML 1 ML VIAL IV PRN (06:31)
[2017-03-12] MEDS ORDERED: ACETAMINOPHEN TAB 325 MG TAB PO PRN (06:31)
--- NOTE | 2017-03-12 06:42 | P.HPIM ---
History of Present Illness H&P Date: 03/12/17 Chief Complaint: Drug overdose This is a 46-year-old female with a past medical history of bipolar disorder depression and general anxiety disorder who presents to the emergency department via EMS complaining of overdosing on Seroquel. Apparently she took approximately 18-20 pills based on her most recent prescription filled date, unsure of the dosage of her Seroquel. Patient states she took him about an hour and a half prior to arrival patient states she was suicidal at the time but after she took them she got scared and called the ambulance. On arrival reports that the patient was found with the bag over her head. Patient's history is limited as she is pretty intoxicated with alcohol but she does Patient states she feels very tired right now but other than that she is having no complaints patient denies headache patient denies numbness weakness. Patient denies lightheadedness or dizziness. Patient denies chest pain palpitations difficulty breathing or shortness of breath. Patient denies abdominal pain patient denies nausea vomiting diarrhea Past Medical History Past Medical History: COPD, Osteoarthritis (OA) Additional Past Medical History / Comment(s): back issues History of Any Multi-Drug Resistant Organisms: None Reported Past Surgical History: Cholecystectomy, Hysterectomy Additional Past Surgical History / Comment(s): nasal surgery Past Psychological History: Depression Smoking Status: Current every day smoker Past Alcohol Use History: None Reported Past Drug Use History: None Reported Medications and Allergies Home Medications Medication Instructions Recorded Confirmed Type Cetirizine HCl [Zyrtec] 10 mg PO DAILY 11/22/16 11/22/16 History Fluticasone Nasal [place] [Flonase 1 spray EA NOSTRIL DAILY PRN 11/22/16 11/22/16 History Nasal [place]] Hydrocodone/Acetaminophen [[place] 1 tab PO Q6H PRN 11/22/16 11/22/16 History 10-325 Tablet] Ibuprofen [Motrin] 800 mg PO Q8HR PRN 11/22/16 11/22/16 History Multivitamins, Thera [Multivitamin 1 tab PO DAILY 11/22/16 11/22/16 History (formulary)] Omeprazole [PriLOSEC] 20 mg PO DAILY 11/22/16 11/22/16 History ARIPiprazole [Abilify] 5 mg PO DAILY #14 tab 11/26/16 Rx DULoxetine HCL [Cymbalta] 30 mg PO DAILY #14 cap 11/26/16 Rx Allergies Allergy/AdvReac Type Severity Reaction Status Date / Time morphine Allergy Unknown Verified 03/12/17 02:22 Sulfa (Sulfonamide Allergy Unknown Verified 03/12/17 02:22 Antibiotics) Physical Exam Vitals: Vital Signs Temp Pulse Resp BP Pulse Ox 03/12/17 06:22 97.4 F L 66 14 100/58 100 03/12/17 05:15 90 16 98/51 99 03/12/17 04:58 84 16 112/67 100 03/12/17 03:55 90 18 110/59 100 03/12/17 02:54 90 16 110/59 100 03/12/17 02:15 97.5 F L 53 L 14 77/43 100 Intake and Output 03/11/17 03/11/17 03/12/17 14:59 22:59 06:59 Other: Weight 87.09 kg Patient Weight 03/12/17 06:59 Weight 87.09 kg Constitutional: No acute distress, acutely intoxicated with alcohol slurring her speech appearing disheveled Eyes: Anicteric sclerae, moist conjunctiva, no lid-lag, PERRLA ENMT: NC/AT,Oropharynx clear, no erythema, exudates Neck:Supple, FROM, no masses, or JVD, No carotid bruits; No thyromegaly Lungs: Clear to auscultation, Clear to percussion, Normal respiratory effort, no accessory muscle use Cardiovascular: Heart regular in rate and rhythm, No murmurs, gallops, or rubs no peripheral edema Abdominal: Soft Nontender, nom distended, no guarding, no rebound or rigidity, Normoactive bowel sounds No hepatomegaly, No splenomegaly, No palpable mass No abdominal wall hernia noted Skin: Normal temperature, tone, texture, turgor, No induration No subcutaneous nodules, No rash, lesions, No ulcers Extremities:No digital cyanosis No clubbing, Pedal pulses intact and symmetrical Radial pulses intact and symmetrical Normal gait and station, No calf tenderness Psychiatric: Somnolent, place and time, flat affect, depressed Neuro: Muscles Strength 5/5 in all 4 extremities, Sensation to light touch grossly present throughout, Cranial nerves II-XII grossly intact. No focal sensory deficits Results CBC & Chem 7: 03/12/17 02:30 03/12/17 02:30 Labs: Abnormal Lab Results - Last 24 Hours (Table) 03/12/17 03/12/17 Range/Units 02:30 04:35 Carbon Dioxide 20 L (22-30) mmol/L Total Protein 6.1 L (6.3-8.2) g/dL U Tricyclic Antidepress Detected H (NotDetected) Urine Cocaine Screen Detected H (NotDetected) Assessment and Plan (1) Suicide attempt Status: Acute (2) Intentional drug overdose Status: Acute (3) Alcohol intoxication Status: Acute (4) Cocaine abuse Status: Acute (5) Metabolic acidosis Status: Acute (6) Metabolic acidosis Status: Acute Plan: The patient has been placed in observation for suicide attempt with intentional drug overdose with Seroquel. I anticipate a less than two midnight stay. Poison control was contacted from the ED and recommended keeping the patient's magnesium and potassium above 2 and 4 respectively, I order a chest x-ray and EKG to check for QT prolongation. We'll recheck a BMP to make sure that her metabolic acidosis has resolved. We'll continue IV fluids and recheck her labs. Psychiatry Dr. Valentino has been consult.. Continue with suicide precautions. Continue to monitor her clinical course Time with Patient: Greater than 30
[2017-03-12] MEDS ORDERED: LORazepam 2 MG/ML INJ IV PRN ×3 (06:52)
[2017-03-12] MEDS ORDERED: THIAMINE 100 MG/ML 2 ML VIAL IM STA (06:52)
--- NOTE | 2017-03-12 07:19 | XR ---
EXAMINATION TYPE: XR chest 1V DATE OF EXAM: 03/12/2017 CLINICAL HISTORY: Drug overdose. TECHNIQUE: Single AP portable frontal view of the chest is obtained. COMPARISON: None FINDINGS: There is low lung volumes with patchy right greater than left bibasilar opacity. There is additional left hilar linear opacity. No large pleural effusion or pneumothorax is seen bilaterally. Cardiac silhouette size is within normal limits. Osseous structures are intact. IMPRESSION: Low lung volumes with right greater than left bibasilar atelectasis and/or infiltrate and left hilar linear atelectasis felt present.
--- NOTE | 2017-03-12 11:03 | P.PN ---
Subjective Principal diagnosis: overdose Patient is a 46-year-old female with a past medical history of COPD, osteoarthritis, and tobacco abuse who presented to the ER after taking an overdose of Seroquel. She had been suicidal at the time. In the ER she underwent an extensive evaluation. Her initial vital sign were found to be within normal limits. Laboratory analysis was remarkable for serum alcohol 221. Urine drug screen showed tricyclic antidepressant and cocaine. She was admitted to the general medical floor for further monitoring and care. She was started on IV fluids. Sitter was placed at bedside. Patient seen and examined at bedside. Denies any chest pain, shortness breath, nausea, or vomiting. She states she feels tired. Objective - Vital Signs Vital signs: Vital Signs Temp 97.2 F L 03/12/17 07:00 Pulse 85 03/12/17 07:00 Resp 16 03/12/17 07:00 BP 91/44 03/12/17 07:00 Pulse Ox 95 03/12/17 07:00 Intake & Output 03/11/17 03/12/17 03/12/17 18:59 06:59 18:59 Weight 87.09 kg - Exam General: Nontoxic no distress, appears at stated age, obese Derm: no rashes, no lesions Head: atraumatic, normocephalic, symmetric Eyes: EOMI, no lid lag, anicteric sclera ENT: no post nasal drip, no thrush Mouth: no lip lesion, mucus membranes moist Cardiovascular: S1S2 reg, no murmur, positive posterior tibial pulse bilateral, Lungs: CTA bilateral, no rhonchi, no rales , no accessory muscle use Abdominal: soft, nontender to palpation, no guarding, no appreciable organomegaly Ext: no gross muscle atrophy, no edema, no contractures Neuro: CN II-XI grossly intact, no focal neuro deficits Psych: Lethargic, oriented, flat affect - Labs CBC & Chem 7: 03/12/17 02:30 03/12/17 02:30 Labs: Abnormal Lab Results - Last 24 Hours (Table) 03/12/17 03/12/17 Range/Units 02:30 04:35 Carbon Dioxide 20 L (22-30) mmol/L Total Protein 6.1 L (6.3-8.2) g/dL U Tricyclic Antidepress Detected H (NotDetected) Urine Cocaine Screen Detected H (NotDetected) Assessment and Plan Plan: #Seroquel overdose -Telemetry monitoring 24 hours -EKG ordered -IV fluids -Supportive care -Monitor magnesium and potassium #Suicidal ideation -Sitters -Await psychiatry evaluation #Alcohol intoxication and cocaine abuse -On see off protocol -Thiamine and folic acid supplementation #Tobacco abuse -Nicotine replacement -Cessation Chronic: COPD Obesity DVT prophylaxis: SCDs Discussed with: , Case management Anticipated discharge: [address]: Inpatient psychiatry A total of 35 minutes was spent on the care of this complex patient more than 50 % of the time was spent in counseling and care coordination.
[2017-03-12 13:02] LABS: Anion Gap 8 mmol/L; Blood Urea Nitrogen 7 mg/dL (7-17); Calcium 8.6 mg/dL (8.4-10.2); Carbon Dioxide 22 mmol/L (22-30); Chloride 112 mmol/L (98-107); Glucose 78 mg/dL (74-99); Non-African American GFR(MDRD) >60 (>60 ml/min/1.73 sqM); Potassium 4.3 mmol/L (3.5-5.1); Sodium 142 mmol/L (137-145)
--- NOTE | 2017-03-12 14:36 | P.PN ---
Progress Note - Text Psychiatry: I have attempted on 2 occasions to evaluate patient but she is sleeping soundly and when awakened returns to sleep immediately, will return tomorrow to evaluate patient. would not start any psychotropic medication at this time.
[2017-03-12] MEDS: FOLIC ACID 1 MG TAB PO SCH (14:48)
[2017-03-12] MEDS: THIAMINE 100 MG TAB PO SCH (17:50)
[2017-03-13 07:01] VITALS: BP 136/83; RESP 20; TEMP 97.2
[2017-03-13] MEDS ORDERED: NICOTINE 14MG/24HR PATCH TRANSDERM SCH (09:00)
[2017-03-13 09:43] LABS: Basophils # (A) 0.1 k/uL (0-0.2); Basophils % (A) 1 %; CH 28.7; CHCM 32.2; Eosinophils # (A) 0.2 k/uL (0-0.7); Eosinophils % (A) 3 %; HCT 43.5 % (34.0-46.0); HDW 2.68; HGB 13.4 gm/dL (11.4-16.0); Luc % (Auto) 2; Lymphocytes # (A) 1.8 k/uL (1.0-4.8); Lymphocytes % (A) 27 %; MCH 27.8 pg (25.0-35.0); MCHC 30.9 g/dL (31.0-37.0); MCV 89.9 fL (80.0-100.0); Mean Platelet Volume 7.1; Monocytes # (A) 0.3 k/uL (0-1.0); Monocytes % (A) 4 %; Neutrophils # (A) 4.3 k/uL (1.3-7.7); Neutrophils % (A) 64 %; RBC 4.84 m/uL (3.80-5.40); RDW 15.6 % (11.5-15.5); WBC 6.7 k/uL (3.8-10.6); WBC (Perox) 6.84
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
[2017-03-13 10:11] LABS: ALT 26 U/L (9-52); AST 16 U/L (14-36); Alkaline Phosphatase 74 U/L (38-126); Anion Gap 8 mmol/L; Blood Urea Nitrogen 7 mg/dL (7-17); Calcium 8.8 mg/dL (8.4-10.2); Carbon Dioxide 23 mmol/L (22-30); Chloride 110 mmol/L (98-107); Glucose 106 mg/dL (74-99); Magnesium 2.2 mg/dL (1.6-2.3); Non-African American GFR(MDRD) >60 (>60 ml/min/1.73 sqM); Phosphorus 3.8 mg/dL (2.5-4.5); Potassium 4.2 mmol/L (3.5-5.1); Sodium 141 mmol/L (137-145); Total Bilirubin 0.6 mg/dL (0.2-1.3); Total Protein 5.6 g/dL (6.3-8.2)
[2017-03-13] MEDS ORDERED: FLUTICASONE 50MCG/SPRAY NASAL 16GM EA NOSTRIL PRN (11:41)
--- NOTE | 2017-03-13 11:43 | P.DS ---
Providers Date of admission: 03/12/17 05:29 Expected date of discharge: 03/13/17 Attending physician: Richard Suarez MD Consults: 03/12/17 05:29 Consult Physician Urgent Consulting Provider: Gisell Salter Consult Reason/Comments: Suicidal Do you want consulting provider notified?: Yes Primary care physician: Stated None - Discharge Diagnosis(es) (1) Suicide attempt Current Visit: Yes Status: Resolved (2) Intentional drug overdose Current Visit: Yes Status: Resolved (3) Cocaine abuse Current Visit: Yes Status: Chronic (4) Alcohol intoxication Current Visit: Yes Status: Resolved (5) Tobacco abuse Current Visit: Yes Status: Chronic (6) Obesity (BMI 30.0-34.9) Current Visit: Yes Status: Chronic Hospital Course: Patient is a 46-year-old female with a past medical history of COPD, osteoarthritis, and tobacco abuse who presented to the ER after taking an overdose of Seroquel. She had been suicidal at the time. In the ER she underwent an extensive evaluation. Her initial vital sign were found to be within normal limits. Laboratory analysis was remarkable for serum alcohol 121. Urine drug screen showed tricyclic antidepressant and cocaine. She was admitted to the general medical floor for further monitoring and care. She was started on IV fluids. Sitter was placed at bedside and she was monitored on telemetry. She remained lethargic her first day after admission. She was seen by psychiatry and 03/13 who recommended admission to the inpatient psychiatry unit. She remained stable. Laboratory analysis was unremarkable. She was determined stable for discharge to mental health. Patient seen and examined at bedside. She complains of nasal stuffiness secondary to not getting her Flonase and Claritin. She would like her Mobitc restarted for chronic pain. She has no other complaints currently. She is aware that she'll benefit replacement mental health unit. Vital signs reviewed and stable. General: , no distress, appears at stated age, obese Derm: no rashes, no lesions Head: atraumatic, normocephalic, symmetric Eyes: EOMI, no lid lag, anicteric sclera ENT: no post nasal drip, no thrush Mouth: no lip lesion, mucus membranes moist Cardiovascular: S1S2 reg, no murmur, positive posterior tibial pulse bilateral, Lungs: CTA bilateral, no rhonchi, no rales , no accessory muscle use Abdominal: soft, nontender to palpation, no guarding, no appreciable organomegaly Ext: no gross muscle atrophy, no edema, no contractures Neuro: CN II-XI grossly intact, no focal neuro deficits Psych: Alert, oriented, flat affect A total of 35 minutes of time were spent preparing this complex discharge summary . Pertinent Studies: Left basilar atelectasis Patient Condition at Discharge: Stable Plan - Discharge Summary New Discharge Prescriptions: New Acetaminophen Tab [Tylenol] 650 mg PO Q6HR PRN tab PRN Reason: Mild Pain Or Fever > 100.5 Nicotine 14Mg/24Hr Patch [Habitrol] 1 patch TRANSDERM DAILY patch Continue Multivitamins, Thera [Multivitamin (formulary)] 1 tab PO DAILY Omeprazole [PriLOSEC] 20 mg PO DAILY Fluticasone Nasal [place] [Flonase Nasal [place]] 1 spray EA NOSTRIL DAILY PRN PRN Reason: Allergy Symptoms Meloxicam 15 mg PO DAILY Discontinued DULoxetine HCL [Cymbalta] 30 mg PO DAILY #14 cap Divalproex Sodium [Depakote] 125 mg PO BID Discharge Medication List Fluticasone Nasal [place] [Flonase Nasal [place]] 1 spray EA NOSTRIL DAILY PRN 11/22 [History] Multivitamins, Thera [Multivitamin (formulary)] 1 tab PO DAILY 11/22/16 [History ] Omeprazole [PriLOSEC] 20 mg PO DAILY 11/22/16 [History] Meloxicam 15 mg PO DAILY 03/12/17 [History] Acetaminophen Tab [Tylenol] 650 mg PO Q6HR PRN tab 03/13/17 [Rx] Nicotine 14Mg/24Hr Patch [Habitrol] 1 patch TRANSDERM DAILY patch 03/13/17 [Rx] Follow up Appointment(s)/Referral(s): None,Stated [Primary Care Provider] - 1-2 days Activity/Diet/Wound Care/Special Instructions: regular diet, activity as tolerated Discharge Disposition: TRANSFER TO PSYCH HOSP/UNIT
[2017-03-13] MEDS ORDERED: PANTOPRAZOLE 40 MG TABLET PO SCH (11:45)
[2017-03-13] MEDS ORDERED: MELOXICAM 7.5 MG TAB PO SCH (11:45)
[2017-03-13] MEDS ORDERED: LORATADINE 10 MG TAB PO SCH (12:00)
[2017-03-13] MEDS: FOLIC ACID 1 MG TAB PO SCH (12:01)
[2017-03-13] MEDS: THIAMINE 100 MG TAB PO SCH (12:01)
[2017-03-13 12:07] VITALS: PULSE 74
== END 2017-03-13 14:49 | disposition still patient (30) | DRG 918 ==
LOC: EC 02:14 → 4MS4W 05:29
PROVIDERS: ADMIT Family Medicine; ATTEND Family Medicine
DX: T43.592A Poisoning by other antipsychotics and neuroleptics, intentional self-harm, initial encounter (principal); E87.2 Acidosis; F10.129 Alcohol abuse with intoxication, unspecified; F14.10 Cocaine abuse, uncomplicated; Y90.6 Blood alcohol level of 120-199 mg/100 ml; F17.200 Nicotine dependence, unspecified, uncomplicated; J44.9 Chronic obstructive pulmonary disease, unspecified; M19.90 Unspecified osteoarthritis, unspecified site; F41.1 Generalized anxiety disorder; F31.9 Bipolar disorder, unspecified; E66.9 Obesity, unspecified; G89.29 Other chronic pain; Z90.49 Acquired absence of other specified parts of digestive tract; Z68.30 Body mass index [BMI] 30.0-30.9, adult; Z90.710 Acquired absence of both cervix and uterus; Z88.4 Allergy status to anesthetic agent; Z88.2 Allergy status to sulfonamides; Z79.1 Long term (current) use of non-steroidal anti-inflammatories (NSAID); Z79.899 Other long term (current) drug therapy; Z79.891 Long term (current) use of opiate analgesic
CPT/HCPCS: 36415; 71010; 80048; 80053; 80306; 80320; 81025; 82075; 83520; 83735; 84100; 85025; 93005; 96361; 96365; 99285

== ENCOUNTER 2017-03-13 14:50 | Inpatient (IN) | payer MEDICAID ==
[2017-03-13] MEDS ORDERED: MELATONIN 3 MG TABLET PO PRN (15:54)
[2017-03-13] MEDS ORDERED: LURASIDONE 40 MG TAB PO SCH (18:00)
[2017-03-13] MEDS ORDERED: ACETAMINOPHEN TAB 325 MG TAB PO PRN (18:07)
[2017-03-13] MEDS ORDERED: MAGNESIUM HYDROXIDE 2,400 MG/10 ML CUP PO PRN (18:07)
[2017-03-13] MEDS ORDERED: MAG HYDROX/AL HYDROX/SIMETH 30 ML CUP PO PRN (18:07)
[2017-03-13] MEDS ORDERED: FLUTICASONE 50MCG/SPRAY NASAL 16GM EA NOSTRIL PRN (18:10)
[2017-03-13] MEDS ORDERED: LORazepam 2 MG/ML INJ IM PRN (18:10)
[2017-03-13 18:15] VITALS: RESP 16
[2017-03-13] MEDS: LORazepam 1 MG TAB PO PRN (18:26)
[2017-03-14] MEDS: LORazepam 1 MG TAB PO PRN (06:36)
[2017-03-14 06:53] VITALS: TEMP 98.4
[2017-03-14] MEDS ORDERED: PANTOPRAZOLE 40 MG TABLET PO SCH (07:30)
[2017-03-14] MEDS ORDERED: MELOXICAM 7.5 MG TAB PO SCH (09:00)
[2017-03-14] MEDS ORDERED: NICOTINE 14MG/24HR PATCH TRANSDERM SCH (09:00)
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
[2017-03-14 11:04] VITALS: BP 132/87; PULSE 96
[2017-03-14] MEDS ORDERED: MULTIVITAMINS, THERA 1 EACH TAB PO SCH (12:00)
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
--- NOTE | 2017-03-14 19:38 | P.HPMEDMHU ---
History of Present Illness H&P Date: 03/14/17 Chief Complaint: overdose Patient is a 46-year-old female with a past medical history of bipolar depression, COPD, and osteoarthritis who is seen in the mental health unit regarding hypertension. She was just discharged from our service on the medical side of the hospital after a Seroquel overdose. Patient seen and examined at bedside. She states that her mentation is corrected. She is not feeling suicidal depressed or anxious. She denies any chest pain, shortness of breath, or lightheadedness. She had several elevated blood pressure readings yesterday evening. She did not have any symptoms during this time. She has a primary care physician at the [facility] and will follow with them in 1 week for repeat blood pressure monitoring. Review of Systems General: no fever/chills, no rigors, no weight loss/weight gain, no change in appetite Eyes: No double vision, no unusual blurry vision, no loss of vision ENT: No rhinorrhea, congestion, no trush Cardiovascular: No chest pain, no palpitations, no syncope, no edema, No paroxysmal nocturnal dyspnea, No dizziness Pulmonary: No shortness of breath, no wheezing, no cough, hemoptysis Abdominal: No abdominal pain, no constipation, no diarrhea, no vomiting, no nausea, no distention Genitourinary: No dysuria, no urinary frequency, no hematuria, no unusual discharge/odor Neuro: No unusual paresthesias, no unusual paresis/paralysis, no headache Dermatologic: No unusual rashes, no unusual lesions, no unusual changes in nails Endocrinology: No intolerance to heat/cold, no excessive thirst, no unusual fatigue Hematologic: No unusual bruising or bleeding, no unusual cervical lymphadenopathy Psychiatric: No changes in mood or behaviors, no changes in sleep pattern Past Medical History Past Medical History: COPD, GERD/Reflux, Osteoarthritis (OA) Additional Past Medical History / Comment(s): back issues, seasonal allergies, insomnia History of Any Multi-Drug Resistant Organisms: None Reported Past Surgical History: Cholecystectomy, Hysterectomy Additional Past Surgical History / Comment(s): nasal surgery Past Anesthesia/Blood Transfusion Reactions: No Reported Reaction Past Psychological History: Depression Smoking Status: Current every day smoker Past Alcohol Use History: None Reported Past Drug Use History: None Reported Medications and Allergies Home Medications Medication Instructions Recorded Confirmed Type Fluticasone Nasal [place] [Flonase 1 spray EA NOSTRIL DAILY PRN 06/09/17 09/28/17 History Nasal [place]] Multivitamins, Thera [Multivitamin 1 tab PO DAILY 11/22/16 03/13/17 History (formulary)] Omeprazole [PriLOSEC] 20 mg PO DAILY 11/22/16 03/13/17 History Meloxicam 15 mg PO DAILY 03/12/17 03/13/17 History Acetaminophen Tab [Tylenol] 650 mg PO Q6HR PRN tab 03/13/17 03/13/17 Rx Lurasidone HCl [Latuda] 20 mg PO DAILY #14 tab 03/14/17 Rx Melatonin 3 mg PO HS PRN #28 tab 03/14/17 Rx Nicotine 14Mg/24Hr Patch [Habitrol] 1 patch TRANSDERM DAILY #14 patch 03/14/17 Rx Allergies Allergy/AdvReac Type Severity Reaction Status Date / Time morphine Allergy Unknown Verified 03/13/17 16:40 Sulfa (Sulfonamide Allergy Unknown Verified 03/13/17 16:40 Antibiotics) Physical Exam Osteopathic Statement: *. No significant issues noted on an osteopathic structural exam other than those noted in the History and Physical/Consult. Vitals: Vital Signs Temp Pulse Resp BP 03/14/17 11:03 96 16 132/87 03/14/17 06:52 98.4 F 69 16 142/90 General: non toxic, no distress, appears at stated age, normal weight Derm: no rashes, no lesions, no ulcers, no unusual ecchymoses Head: atraumatic, normocephalic, symmetric Eyes: EOMI, no lid lag, anicteric sclera, pupils equal round reactive to light ENT: no post nasal drip, no thrush , nearest patent, no pharyngeal erythema Neck: No thyromegaly, no cervical lymphadenopathy, trachea midline, supple Mouth: no lip lesion, mucus membranes moist Cardiovascular: S1S2 reg, no murmur, positive posterior tibial pulse bilateral, no edema , no JVD, no clubbing, no cyanosis, capillary refill less than 2 seconds Lungs: CTA bilateral, no rhonchi, no rales , no accessory muscle use Abdominal: soft, nontender to palpation, no guarding, no appreciable organomegaly, normal bowel sounds Ext: no gross muscle atrophy, muscle strength 5 out of 5 in all 4 extremities grossly, no contractures, Neuro: CN II-XI grossly intact, light touch intact all 4 extremities, finger to nose within normal limits, Psych: Alert, oriented, appropriate affect Cranial Nerve Examination - Cranial Nerves Cranial Nerve II- Optic: Intact Cranial Nerve III- Oculomotor: Intact Cranial Nerve IV- Trochlear: Intact Cranial Nerve V- Trigeminal: Intact Cranial Nerve - Abducens: Intact Cranial Nerve VII- Facial: Intact Cranial Nerve VIII- Auditory: Intact Cranial Nerve IX- Glossopharyngeal: Intact Cranial Nerve X- Vagus: Intact Cranial Nerve XI- Accessory: Intact Cranial Nerve XII- Hypoglossal: Intact Assessment and Plan Plan: #One day of elevated blood pressure reading not diagnostic of hypertension -Patient's blood pressure resolved spontaneously without intervention and may be related to anxiety or change in medication -Recommend repeat blood pressure testing in one week patient is aware of this and will follow with [facility]. She knows that should she have a second value greater than 140 she may needed to be started on medications for high blood pressure. #COPD without exacerbation -Not chronically on any medications #GERD -Continue metoprolol #Overdose -Your psych management Thank you for allowing us to participate in the care of this patient. We will follow peripherally. Do not hesitate to contact us with questions. Someone can be reached from the [facility] hospitalist group at all hours of the day at [phone].
== END 2017-03-14 13:29 | disposition home or self-care (01) | DRG 885 ==
LOC: 3MHU 14:50
PROVIDERS: ADMIT Psychiatry & Neurology Psychiatry; ATTEND Psychiatry & Neurology Psychiatry
DX: F31.9 Bipolar disorder, unspecified (principal); J44.9 Chronic obstructive pulmonary disease, unspecified; F14.90 Cocaine use, unspecified, uncomplicated; Z79.899 Other long term (current) drug therapy; T43.591A Poisoning by other antipsychotics and neuroleptics, accidental (unintentional), initial encounter; K21.9 Gastro-esophageal reflux disease without esophagitis; R45.87 Impulsiveness; R03.0 Elevated blood-pressure reading, without diagnosis of hypertension; M19.90 Unspecified osteoarthritis, unspecified site; J30.2 Other seasonal allergic rhinitis; G47.00 Insomnia, unspecified; Z90.710 Acquired absence of both cervix and uterus; Z90.722 Acquired absence of ovaries, bilateral; Z90.49 Acquired absence of other specified parts of digestive tract; Z91.5 Personal history of self-harm
CPT/HCPCS: 84443